=== PATIENT | female | born 1950 | race Caucasian/White ===

== ENCOUNTER → 2016-11-07 | Outpatient (CLI) | payer OTHER ==
[~2016-11-07] MED LIST: DARVOCET N 1001 TAB PO; VICODIN ES 7501 TAB PO
== END | disposition home or self-care (01) ==
LOC: MAMMO 10:08
DX: Z12.31 Encounter for screening mammogram for malignant neoplasm of breast (principal)

== ENCOUNTER → 2017-10-28 | Outpatient (CLI) | payer OTHER ==
[~2017-10-28] MED LIST changes: +LEVAQUIN750 M1 PO
== END | disposition home or self-care (01) ==
LOC: RAD 15:59
DX: J18.9 Pneumonia, unspecified organism (principal)

== ENCOUNTER 2019-01-23 10:29 | Inpatient (IN) | payer OTHER ==
[2019-01-23] VITALS (10 sets, daily range): BP systolic 137–220; BP diastolic 63–110
[~2019-01-23] VITALS: Ht 157.4 cm; Wt 56.8 kg
[2019-01-23 10:57] LABS: BASO % 0.3 % (0.0-1.0); EOS # 0.2 10*3/uL (0.0-0.4); EOS % 2.8 % (1.0-4.0); HEMATOCRIT 37.8 % (37.0-47.0); HEMOGLOBIN 12.4 g/dl (12.0-16.0); LYMPH # 1.2 10*3/uL (1.3-4.4); LYMPH % 18.1 % (27.0-41.0); MEAN CELL VOLUME 95.7 fl (81.0-99.0); MEAN CORPUSCULAR HGB 31.4 pg (27.0-31.0); MEAN CORPUSCULAR HGB CONC 32.8 g/dl (33.0-37.0); MEAN PLATELET VOLUME 10.6 fl (9.6-12.3); MONO # 0.7 10*3/uL (0.1-1.0); MONO % 10.8 % (3.0-9.0); NEUT # 4.3 10*3/uL (2.3-7.9); NEUT % 67.7 % (47.0-73.0); PLATELET COUNT AUTOMATED 182 10*3/uL (130-400); RED BLOOD COUNT 3.95 10*6/uL (4.10-5.10); RED CELL DISTRI WIDTH 12.5 % (0-14.5); WHITE BLOOD COUNT 6.4 10*3/uL (4.8-10.8)
[2019-01-23 11:14] LABS: ALBUMIN 3.6 gm/dl (3.1-4.5); CREATININE 2.26 mg/dL (0.55-1.02); POTASSIUM 4.4 mmol/L (3.5-5.1); TOTAL PROTEIN 7.5 gm/dL (6.4-8.2)
--- NOTE | 2019-01-23 14:17 | NUR ---
PT IS NOW COMPLAINING OF CHEST PRESSURE AFTER STARTING THE FLUIDS. EKG ORDERED.
--- NOTE | 2019-01-23 14:54 | NUR ---
PT COMPLAINING OF LEFT SIDED CHEST PRESSURE/PAIN THAT IS GOING INTO HER BACK. SHE DOES NOT TAKE ASPIRIN AT HOME. PT WAS MEDICATED WITH ASPIRIN AND NITRO. VS STABLE AT THIS TIME. WILL CONTINUE TO MONITOR. CALL DELEON WITHIN REACH.
--- NOTE | 2019-01-23 15:21 | NUR ---
PT DOES HAVE RELIEF FROM THE NITROGLYCERIN.
[2019-01-23] MEDS ORDERED: CARVEDILOL12.5 MG PO (16:06)
[2019-01-23] MEDS ORDERED: LOSARTAN POTASS50 M1 PO (16:07)
[2019-01-23] MEDS ORDERED: NOVAPLUS TACROLI1 MG PO (16:08)
--- NOTE | 2019-01-23 16:09 | NUR ---
MED REC UPDATED AT BEDSIDE. PT KNOWS ALL MEDICATIONS.
--- NOTE | 2019-01-23 16:10 | NUR ---
AWARE OF BP 176/84. NO NEW ORDERS REC'D.
--- NOTE | 2019-01-23 20:40 | NUR ---
DR. SALAZAR NOTIFIED OF PT'S C/O LEFT SIDE CHEST PAIN AND MIDSTERNAL CHEST HEAVINESS. T.O. RCVD FOR STAT CONSULT W/DR. GAMBINO, NITRO SL 0.4MG X1 NOW, STAT EKG.
--- NOTE | 2019-01-23 20:45 | NUR ---
DR. GAMBINO NOTIFIED OF STAT CONSULT FOR NEW ONSET CHEST PAIN. T.O. RCVD FOR NITROPASTE 1" TOPICAL EVERY 6 HOURS. IF CHEST PAIN DOES NOT SUBSIDE, START NITRO GTT. CALL WITH 3RD TROPONIN.
--- NOTE | 2019-01-23 22:13 | NUR ---
DR. SALAZAR NOTIFIED OF PT'S TROPONIN OF 0.079.
--- NOTE | 2019-01-23 22:16 | NUR ---
DR. GAMBINO NOTIFIED OF PT'S TROPONIN OF 0.079. NO ORDERS AT THIS TIME.
[2019-01-24] VITALS: BP 141/71
[2019-01-24 07:38] LABS: CREATININE 2.11 mg/dL (0.55-1.02)
[2019-01-24 07:47] LABS: POTASSIUM 3.4 mmol/L (3.5-5.1)
[2019-01-24 10:34] VITALS: BP 168/80
[2019-01-24 12:00] VITALS: BP 144/74
--- NOTE | 2019-01-24 12:00 | NUR ---
PT TO HAVE STRESS TEST ON SATURDAY WITH DR SALAZAR AT 1200. PATIENT AWARE.
--- NOTE | 2019-01-24 12:30 | NUR ---
NEW ORDERS RECEIVED FROM DR GAMBINO. COREG 12.5 MG BID DISCONTINUED. COREG 25 MG PO ORDERED FOR DAILY AT 1000, COREG 12.5 MG DAILY AT 2200. PT TO HAVE LEXISCAN STRESS TEST ON FRIDAY 01/26 AT 0700. WILL NOTIFY PT OF NEW ORDERS.
[2019-01-24 13:17] VITALS: BP 162/70
[2019-01-24] MEDS ORDERED: CARVEDILOL25 MG PO (14:24)
[2019-01-24 16:00] VITALS: BP 156/73
--- NOTE | 2019-01-24 17:49 | NUR ---
PT REFUSES NITRO PASTE AT THIS TIME DUE TO HAVING NO CHEST PAIN.
[2019-01-24 20:00] VITALS: BP 180/90; BP 180/96
--- NOTE | 2019-01-24 20:00 | NUR ---
PATIENT A&Ox3, SITTING IN BED WATCHING TV. PATIENT HAS NO COMPLAINTS AT THIS TIME. SEE ASSESSMENT. CALL LIGHT WITHIN REACH. WILL MONITOR.
[2019-01-25] VITALS: BP 164/78
--- NOTE | 2019-01-25 02:00 | NUR ---
PATIENT RESTING WITH EYES CLOSED. RESPIRATIONS EASY AND UNLABORED. CALL LIGHT WITHIN REACH. WILL MONITOR.
--- NOTE | 2019-01-25 04:00 | NUR ---
PATIENT RESTING WITH EYES CLOSED.RESPIRATIONS EASY AND UNLABORED. CALL LIGHT WITHIN REACH. WILL MONITOR.
--- NOTE | 2019-01-25 04:30 | NUR ---
24 HR chart check completed.
[2019-01-25 06:51] LABS: CREATININE 1.56 mg/dL (0.55-1.02); POTASSIUM 3.4 mmol/L (3.5-5.1)
[2019-01-25 08:00] VITALS: BP 172/90
[2019-01-25 12:00] VITALS: BP 188/82; BP 188/92
[2019-01-25 16:00] VITALS: BP 158/88
--- NOTE | 2019-01-25 16:16 | NUR ---
PT MEDICATED WITH PRN TYLENOL FOR C/O A HEADACHE.
[2019-01-25 20:00] VITALS: BP 180/96
--- NOTE | 2019-01-25 21:49 | NUR ---
DR SALAZAR AWARE OF BLOOD PRESSURE AFTER GIVING SCHEDULED COREG. STATES TO DC FLUIDS AND START NORVASC 5MG DAILY STARTING NOW
[2019-01-25 21:56] VITALS: BP 188/88
--- NOTE | 2019-01-25 22:04 | NUR ---
MEDICATED WITH PRN TYLENOL FOR C/O HEADACHE RATED 8/10 ON A 0/10 PAIN SCALE
--- NOTE | 2019-01-25 22:35 | NUR ---
24 HR chart check completed.
--- NOTE | 2019-01-25 23:41 | NUR ---
DR SALAZAR AWARE OF BLOOD PRESSURE OF 190/100. STATES TO WAIT ONE MORE HOUR, RECHECK, THEN CALL DR GAMBINO.
--- NOTE | 2019-01-25 23:50 | NUR ---
PATIENT REFUSING NITRO PASTE. STATES IT IS NOT HELPING HER BLOOD PRESSURE AND IS JUST GIVING HER A HEADACHE.
[2019-01-26] VITALS (7 sets, daily range): BP systolic 148–192; BP diastolic 74–100
--- NOTE | 2019-01-26 00:48 | NUR ---
CALLED DR GAMBINO AT THIS TIME. DISCONNECTED
--- NOTE | 2019-01-26 00:51 | NUR ---
SPOKE WITH DR GAMBINO. STATES TO INCREASE COREG TO 25 BID AND NORVASC TO 10, GIVE ANOTHER 5 MG NOW.
--- NOTE | 2019-01-26 02:59 | NUR ---
DR TSANG AWARE OF PATIENT'S BLOOD PRESSURE 190/100. STATES TO "CALL DR GAMBINO BACK AND LET HIM HANDLE IT".
--- NOTE | 2019-01-26 05:32 | NUR ---
DR GAMBINO AWARE OF BLOOD PRESSURE. STATES TO INCREASE COZAAR TO 50MG BID START NOW
--- NOTE | 2019-01-26 05:33 | NUR ---
DR GAMBINO ALSO MADE AWARE OF STRESS TEST ORDERED FOR TODAY
[2019-01-26 07:08] LABS: CREATININE 1.37 mg/dL (0.55-1.02); POTASSIUM 3.6 mmol/L (3.5-5.1)
--- NOTE | 2019-01-26 09:00 | NUR ---
[employer] Consultant in to talk to patient. Patient states lives at home with her , son, and [id number]. There are 6 steps in the home. Physician: Dr. Parker Almonte [facility]: none Patient's level of ADLs: INDEPENDENT Patient has working utilities: yes DME: none Follow-up physician's appointment after d/c: she prefers to make her own follow up appt after discharge Does patient want to access PORTAL?: no Discharge plan discussed with patient. She lives at home with her , son, and [id number]. She is independent in her ADLs and ambulation. Discussed home health care services and she denies any home needs at this time. When medically stable she will be discharged to home. She states her [id number] will provide transportation on discharge. Elevated troponin, stress, Dr. Ayers consult, cardiac med changes. LILIANA SWENSON
--- NOTE | 2019-01-26 11:40 | NUR ---
NOTIFIED PTS BP BACK UP TO 180/94 MANUALLY. PER OK TO GO AHEAD AND GIVE THE NORVASC NOW. CONTINUE WITH THE STRESS TEST AND TO GIVEN COREG SOON PATIENT RETURNS FROM STRESS TEST.
--- NOTE | 2019-01-26 12:30 | NUR ---
PT DOWN FOR STRESS TEST AT THIS TIME.
--- NOTE | 2019-01-26 13:07 | NUR ---
INFORMED SIGNED CONSENT OBTAINED FOR LEXISCAN STRESS TEST WITH DR SALAZAR. RESTING EKG NSR HR 88 BP 148/80. PULSE OX 97% LUNGS CLEAR. PT COMPLETED ONE MINUTE OF A LEXISCAN PROTOCOL WITH PT RECEIVING LEXISCAN 0.4MG IV OVER 10 SECONDS. NO ARRHYTHMIAS NOTED. NON DIAGNOSTIC ST CHANGES. PT C/O A STRANGE FEELING WITH INJECTION. LAST RECOVERY HR OF 101 BP 150/64. PT IN STABLE CONDITION, AWAITING NUCLEAR IMAGES.
--- NOTE | 2019-01-26 14:25 | NUR ---
PT BACK TO THE FLOOR FROM STRESS TEST AT THIS TIME.
--- NOTE | 2019-01-26 18:55 | NUR ---
Discharge instructions reviewed with patient/family. Patient receptive and verbalizes understanding. Follow-up care arranged. Written instructions given to patient/family. MONITORED REMOVED AND ACCOUNTED FOR. IV REMOVED. KULDIP RAGSDALE
[2019-01-26] MEDS ORDERED: AMLODIPINE BESY10 MG PO (19:09)
== END 2019-01-26 18:55 | disposition home or self-care (01) | DRG 682 ==
LOC: ED 10:29 → 4E 15:30 → EDHOLD 15:30 → 4E 15:38
PROVIDERS: Emergency Medicine; ADMIT Internal Medicine
DX: I12.9 Hypertensive chronic kidney disease with stage 1 through stage 4 chronic kidney disease, or unspecified chronic kidney disease (principal); N17.0 Acute kidney failure with tubular necrosis; Z94.4 Liver transplant status; N18.4 Chronic kidney disease, stage 4 (severe); E87.6 Hypokalemia; R07.89 Other chest pain; I25.10 Atherosclerotic heart disease of native coronary artery without angina pectoris; E78.2 Mixed hyperlipidemia; I25.2 Old myocardial infarction; Z88.7 Allergy status to serum and vaccine; Z91.041 Radiographic dye allergy status; Z87.01 Personal history of pneumonia (recurrent); Z98.891 History of uterine scar from previous surgery

== ENCOUNTER → 2019-03-03 | Outpatient (CLI) | payer OTHER ==
[~2019-03-03] MED LIST changes: +AMLODIPINE BESY10 MG PO; +CARVEDILOL12.5 MG PO; +CARVEDILOL25 MG PO; +LOSARTAN POTASS50 M1 PO; +NOVAPLUS TACROLI1 MG PO
[2019-03-03 11:11] LABS: HEMATOCRIT 35.7 % (37.0-47.0); HEMOGLOBIN 11.8 g/dl (12.0-16.0); MEAN CELL VOLUME 93.5 fl (81.0-99.0); MEAN CORPUSCULAR HGB 30.9 pg (27.0-31.0); MEAN CORPUSCULAR HGB CONC 33.1 g/dl (33.0-37.0); MEAN PLATELET VOLUME 10.9 fl (9.6-12.3); RED BLOOD COUNT 3.82 10*6/uL (4.10-5.10); RED CELL DISTRI WIDTH 11.7 % (0-14.5); WHITE BLOOD COUNT 4.6 10*3/uL (4.8-10.8)
[2019-03-03 11:41] LABS: ALBUMIN 3.7 gm/dl (3.1-4.5); CREATININE 1.76 mg/dL (0.55-1.02); POTASSIUM 4.3 mmol/L (3.5-5.1); TOTAL PROTEIN 7.4 gm/dL (6.4-8.2)
== END | disposition home or self-care (01) ==
LOC: LAB 10:30
PROVIDERS: Family Medicine
DX: I12.9 Hypertensive chronic kidney disease with stage 1 through stage 4 chronic kidney disease, or unspecified chronic kidney disease (principal); N18.9 Chronic kidney disease, unspecified; E55.9 Vitamin D deficiency, unspecified; R53.83 Other fatigue

== ENCOUNTER 2019-12-26 14:59 | Emergency (ER) | payer OTHER ==
[~2019-12-26] VITALS: Wt 65.3 kg
== END 2019-12-26 19:22 ==
LOC: ED 14:59
DX: S61.411A Laceration without foreign body of right hand, initial encounter (principal); S00.93XA Contusion of unspecified part of head, initial encounter; S42.402A Unspecified fracture of lower end of left humerus, initial encounter for closed fracture; S62.602A Fracture of unspecified phalanx of right middle finger, initial encounter for closed fracture; Z79.899 Other long term (current) drug therapy; W19.XXXA Unspecified fall, initial encounter; Y93.89 Activity, other specified; Y92.89 Other specified places as the place of occurrence of the external cause; Y99.8 Other external cause status

== ENCOUNTER → 2021-01-25 | Outpatient (CLI) | payer OTHER | END | disposition home or self-care (01) | LOC: MAMMO 01-19 10:30 | PROVIDERS: ATTEND Family Medicine | DX: Z12.31 Encounter for screening mammogram for malignant neoplasm of breast (principal) ==

== ENCOUNTER 2021-07-19 00:42 | Emergency (ER) | payer MEDICARE ==
[2021-07-19 01:21] LABS: BASO % 0.4 % (0.0-1.0); EOS # 0.2 10*3/uL (0.0-0.4); EOS % 3.3 % (1.0-4.0); HEMATOCRIT 35.1 % (37.0-47.0); LYMPH # 1.2 10*3/uL (1.3-4.4); LYMPH % 26.9 % (27.0-41.0); MEAN CELL VOLUME 94.4 fl (81.0-99.0); MEAN CORPUSCULAR HGB 31.7 pg (27.0-31.0); MEAN CORPUSCULAR HGB CONC 33.6 g/dl (33.0-37.0); MEAN PLATELET VOLUME 10.9 fl (9.6-12.3); MONO # 0.5 10*3/uL (0.1-1.0); MONO % 11.1 % (3.0-9.0); NEUT # 2.6 10*3/uL (2.3-7.9); NEUT % 58.1 % (47.0-73.0); PLATELET COUNT AUTOMATED 174 10*3/uL (130-400); RED BLOOD COUNT 3.72 10*6/uL (4.10-5.10); RED CELL DISTRI WIDTH 12.5 % (0-14.5); WHITE BLOOD COUNT 4.5 10*3/uL (4.8-10.8)
== END 2021-07-19 02:09 | disposition home or self-care (01) ==
LOC: ED 00:42
PROVIDERS: Internal Medicine
DX: M96.831 Postprocedural hemorrhage of a musculoskeletal structure following other procedure (principal); D64.9 Anemia, unspecified; Z88.7 Allergy status to serum and vaccine; Z98.890 Other specified postprocedural states; Z79.899 Other long term (current) drug therapy

== ENCOUNTER → 2022-05-16 | Outpatient (CLI) | payer MEDICARE ==
[2022-05-16 09:28] LABS: HEMATOCRIT 37.4 % (37.0-47.0); MEAN CELL VOLUME 94.9 fl (81.0-99.0); MEAN CORPUSCULAR HGB 31.5 pg (27.0-31.0); MEAN CORPUSCULAR HGB CONC 33.2 g/dl (33.0-37.0); MEAN PLATELET VOLUME 10.2 fl (9.6-12.3); RED BLOOD COUNT 3.94 10*6/uL (4.10-5.10); WHITE BLOOD COUNT 7.4 10*3/uL (4.8-10.8)
[2022-05-16 10:31] LABS: VITAMIN D, 25-HYDROXY 51.9 ng/mL (30-100)
[2022-05-16 13:50] LABS: TOTAL PROTEIN 7.2 gm/dL (6.0-8.0)
== END | disposition home or self-care (01) ==
LOC: LAB 08:58
PROVIDERS: ATTEND Family Medicine
DX: M17.11 Unilateral primary osteoarthritis, right knee (principal); M25.861 Other specified joint disorders, right knee; I10 Essential (primary) hypertension; E78.00 Pure hypercholesterolemia, unspecified; E55.9 Vitamin D deficiency, unspecified; R53.83 Other fatigue